=== PATIENT | female | born 1965 | race Caucasian/White ===

== ENCOUNTER 2019-08-03 07:43 | Outpatient (CLI) | payer BC, SELFPAY ==
--- NOTE | ~2019-08-03 | CT_ITS ---
EXAMINATION: CT abdomen pelvis w con DATE: 08/03/2019 08:49 INDICATION: Lower abdominal pain, left greater than right. Bloating, nausea, constipation. History of diverticulitis. TECHNIQUE: Computed tomography (CT) of the abdomen and pelvis was performed with 100 cc Omnipaque 350 intravenous contrast. Automated exposure control and iterative reconstruction technique were employe d. Exam dose: 1458.95 mGy-cm total exam DLP. COMPARISON: None. FINDINGS: The lung bases are clear. Normal heart size. No pericardial or pleural effusion. Status post cholecystectomy. No hepatic, splenic, pancreatic, adrenal or renal space-occupying mass l esion. Normal appendix. There are numerous diverticula of the left and right colon. There is CT evidence o f mild lower descending colon diverticulitis, with mild pericolic stranding. No bowel obstructio n or free air. Normal caliber of the abdominal aorta. No intraperitoneal or retroperitoneal or pelvic mass lesion o r lymphadenopathy. No ascites. Status post hysterectomy. Degenerative changes of the thoracic and lumbar spine. IMPRESSION: Mild diverticulitis of the lower descending colon Reviewed, dictated and finalized at [facility]. Reviewed, dictated and finalized at [facility].
[2019-08-03 08:25] LABS: Estimated Glomerular Filt Rate 55
== END 2019-08-03 07:44 | disposition home or self-care (01) ==
PROVIDERS: PCP Nurse Practitioner Family; Visit Provider Nurse Practitioner Family
DX: R10.32 Left lower quadrant pain (principal)
CPT/HCPCS: 74177; Q9965

== ENCOUNTER 2019-10-24 15:27 | Outpatient (CLI) | payer BC, SELFPAY ==
[2019-10-24 16:29] LABS: Thyroid Stimulating Hormone 2.26 uIU/mL (0.36-3.74)
== END 2019-10-24 15:28 | disposition home or self-care (01) ==
PROVIDERS: PCP Nurse Practitioner Family; Visit Provider Nurse Practitioner Family
DX: E03.9 Hypothyroidism, unspecified (principal)
CPT/HCPCS: 36415; 84443

== ENCOUNTER 2020-01-16 18:38 | Outpatient (CLI) | payer BC, SELFPAY ==
[2020-01-17 14:04] LABS: SARS-CoV-2 RNA PCR Negative
== END 2020-01-16 18:39 | disposition home or self-care (01) ==
LOC: CHSLAB 18:41
PROVIDERS: PCP Family Medicine; Visit Provider Family Medicine
DX: Z20.828 Contact with and (suspected) exposure to other viral communicable diseases (principal)
CPT/HCPCS: 87635; C9803; U0003

== ENCOUNTER 2020-01-22 09:46 | Outpatient (CLI) | payer BC, SELFPAY ==
[2020-01-24 01:59] LABS: SARS-CoV-2 RNA PCR Negative
== END 2020-01-22 09:47 | disposition home or self-care (01) ==
LOC: CHSLAB 09:54
PROVIDERS: PCP Nurse Practitioner Family; Visit Provider Nurse Practitioner Family
DX: Z20.828 Contact with and (suspected) exposure to other viral communicable diseases (principal)
CPT/HCPCS: 87635; C9803; U0003

== ENCOUNTER 2020-04-22 18:29 | Outpatient (CLI) | payer BC, SELFPAY ==
[2020-04-24] LABS: SARS-CoV-2 RNA PCR Negative
== END 2020-04-22 18:30 | disposition home or self-care (01) ==
LOC: CHSLAB 18:31
PROVIDERS: PCP Nurse Practitioner Family; Visit Provider Nurse Practitioner Family
DX: Z20.822 Contact with and (suspected) exposure to COVID-19 (principal)
CPT/HCPCS: C9803; U0003; U0005

== ENCOUNTER 2020-05-23 07:06 | Outpatient (CLI) | payer BC, SELFPAY ==
[2020-05-23 07:18] LABS: Basophils Absolute Auto 0.02 K/mm3 (0.00-0.10); Basophils Percent Auto 0.4 % (0.0-1.0); Eosinophils Percent Auto 1.8 % (1.0-6.0); Hematocrit 41.9 % (35.0-49.0); Hemoglobin 13.6 g/dL (12.0-15.0); Immature Granulocyte Absolute 0.01 K/mm3 (0.00-0.00); Immature Granulocyte Percent A 0.2 % (0.0-0.0); Lymphocytes Absolute Auto 1.65 K/mm3 (1.10-4.50); Lymphocytes Percent Auto 29.2 % (18.0-42.0); Mean Corpuscular HGB Conc 32.5 g/dL (32.0-36.0); Mean Corpuscular Hemoglobin 29.4 pg (27.0-31.0); Mean Corpuscular Volume 90.7 fL (78.0-102.0); Mean Platelet Volume 8.6 fl (9.2-11.8); Monocytes Absolute Auto 0.53 K/mm3 (0.10-0.90); Monocytes Percent Auto 9.4 % (2.0-11.0); Neutrophils Absolute Auto 3.3 K/mm3 (1.7-7.2); Platelet Count Result 220 K/mm3 (150-420); Red Blood Count 4.62 M/mm3 (4.20-5.40); Red Cell Distribution Width 13.2 % (11.6-14.4); White Blood Count 5.7 K/mm3 (4.8-10.8)
[2020-05-23 08:10] LABS: Alanine Aminotransferase 34 U/L (14-59); Albumin Level 3.5 g/dL (3.4-5.0); Alkaline Phosphatase 76 U/L (46-116); Anion Gap 7 mmol/L (8-16); Aspartate Amino Transferase 18 U/L (15-37); Bilirubin,Total 0.4 mg/dL (0.00-1.00); Blood Urea Nitrogen 18 mg/dL (7-18); Calcium 8.6 mg/dL (8.5-10.1); Carbon Dioxide 31 mmol/L (21-32); Chloride 102 mmol/L (98-108); Cholesterol 198 mg/dL (0-200); Estimated Glomerular Filt Rate 57; Free T4 Free Thyroxine 0.97 ng/dL (0.76-1.46); Glucose 100 mg/dL (70-99); HDL Direct 56 mg/dL (40-60); LDL Cholesterol Calculated 115 mg/dL (<130); Osmolality Calculated 291 mOsm/kg (285-295); Sodium 140 mmol/L (136-145); Thyroid Stimulating Hormone 3.91 uIU/mL (0.36-3.74); Total Protein 6.5 g/dL (6.4-8.2); Triglycerides 135 mg/dL (0-150)
== END 2020-05-23 07:07 | disposition home or self-care (01) ==
LOC: CHSLAB 07:09
PROVIDERS: PCP Nurse Practitioner Family; Visit Provider Nurse Practitioner Family
DX: Z00.00 Encounter for general adult medical examination without abnormal findings (principal); I10 Essential (primary) hypertension; E03.9 Hypothyroidism, unspecified
CPT/HCPCS: 36415; 80053; 80061; 84439; 84443; 85025

== ENCOUNTER 2020-08-05 13:20 | Outpatient (CLI) | payer BC, SELFPAY | END 2020-08-05 13:21 | disposition home or self-care (01) | LOC: CHSLAB 13:22 | PROVIDERS: PCP Nurse Practitioner Family; Visit Provider Nurse Practitioner Family | DX: R10.32 Left lower quadrant pain (principal) | CPT/HCPCS: 87324 ==

== ENCOUNTER 2020-09-20 01:08 | Day surgery (SDC) | payer BC, SELFPAY ==
[2020-09-11 15:32] VITALS: BMI 42.0
[2020-09-20 08:23] VITALS: BP 122/86; PULSE 94; RESP 16; TEMP 36.2; O2SAT 100
[2020-09-20] MEDS: LACTATED RINGERS 1,000 ML 150 ML IV CONT (08:33)
--- NOTE | 2020-09-20 08:40 | WPDGICN ---
Assessment and Plan Assessment and plan (1) History of diverticulitis of colon: Code(s): Z87.19 - Personal history of other diseases of the digestive system Status: Acute Assessment and Plan: Patient has a history of left lower quadrant diverticulitis. Plan is for high-fiber diet a colonoscopy will be performed further recommendations will be given after endoscopy. (2) LLQ abdominal pain: Code(s): R10.32 - Left lower quadrant pain Status: Acute Assessment and Plan: Recent left lower quadrant abdominal pain is improved after course of antibiotics for presumed diverticular disease. GI Consult Note Consult date/time: 09/20/20 08:40 HPI: Belkys Murry is a 54 year old female presents for colonoscopy because of episode of diverticulitis. Patient reports having had left lower quadrant abdominal pain during the month of June. Pain lasted for approximately 1 month. Patient ultimately underwent a CAT scan consistent with diverticulitis. She was treated with with 10 day course of antibiotics. Patient states pain is now resolved. She is felt pain-free for 4-6 weeks. She denies any weight loss or bleeding. In the past she has had occasional brief left lower quadrant abdominal pain. Family history is significant that her father had a bowel resection for a colon polyp. Review of Systems Review of Systems: All systems reviewed & are unremarkable except as noted in HPI and below PMFSH Past Medical History Medical History Essential hypertension Generalized anxiety disorder Major depression, recurrent Obese Raynauds disease Sinusitis URI (upper respiratory infection) Surgical History Surgical History History of ankle surgery History of bilateral tubal ligation (~1996) History of cholecystectomy (~2003) History of hysterectomy (~2008) S/P surgery on nasal septum (~2015) Family History Family History Father Diabetes mellitus Hypertension Myocardial infarction Mother Hypertension Other Acute myocardial infarction Family history of type 2 diabetes mellitus Social History Social History Smoking status: Never smoker Alcohol intake: current Alcohol use details: once every 3 months Substance use: never Substance use type: does not use Gender identity (if verbalized by the patient): Female Spiritual care concerns: No Meds Home Medications and Allergies Home Medications Medication Instructions Recorded Confirmed Type aspirin 81 mg tablet,delayed 81 mg PO HS 02/28/19 09/11/20 History release bupropion HCl 300 mg 24 hr tablet, 300 mg PO DAILY #90 tablet 04/03/20 09/11/20 Rx extended release buspirone 5 mg PO BID 09/11/20 09/11/20 History cetirizine 10 mg PO DAILY 09/11/20 09/11/20 History fluticasone propionate 1 spray INTRANASAL DAILY 09/11/20 09/11/20 History levothyroxine 50 mcg PO DAILY 09/11/20 09/11/20 History losartan-hydrochlorothiazide 1 tablet PO DAILY 09/11/20 09/11/20 History Allergies Allergy/AdvReac Type Severity Reaction Status Date / Time Penicillins Allergy Severe unknown Verified 09/20/20 08:21 prednisone Allergy Severe Palpitation Verified 09/20/20 08:21 s Vital Signs Vital Signs - 24 hr 09/20/20 08:23 Temperature 97.1 F L Pulse Rate 94 Respiratory Rate 16 Blood Pressure 122/86 Pulse Oximetry 100 Exam Narrative: Exam Narrative: Physical exam reveals patient be alert. Vital signs stable. HEENT exam is unremarkable. Lungs are clear to auscultation and percussion. Heart is without murmur or extra sounds. Abdominal exam bowel sounds are present soft nontender with no organomegaly. Digital external rectal exam is normal.
--- NOTE | 2020-09-20 08:44 | WPDANESEPPF ---
Anes - Initial Pre Proc Eval Procedure: Operation Date: 09/20/20 09:30 Proposed Procedures p Colonoscopy - Arnoldo Puente MD Date/Time: 09/20/20 08:44 Surgeon: Arnoldo Puente MD Pre Op Diagnosis: diverticulitis Patient Data Age: 54 Gender: F Height: 1.68 m Weight: 116.3 kg Last Vital Signs Temp 97.1 F L 09/20/20 08:23 Pulse 94 09/20/20 08:23 Resp 16 09/20/20 08:23 BP 122/86 09/20/20 08:23 Pulse Ox 100 09/20/20 08:23 Allergies Allergy/AdvReac Type Severity Reaction Status Date / Time Penicillins Allergy Severe unknown Verified 09/20/20 08:21 prednisone Allergy Severe Palpitation Verified 09/20/20 08:21 s Home Medications Medication Instructions Recorded Confirmed Type aspirin 81 mg tablet,delayed 81 mg PO HS 02/28/19 09/11/20 History release bupropion HCl 300 mg 24 hr tablet, 300 mg PO DAILY #90 tablet 04/03/20 09/11/20 Rx extended release buspirone 5 mg PO BID 09/11/20 09/11/20 History cetirizine 10 mg PO DAILY 09/11/20 09/11/20 History fluticasone propionate 1 spray INTRANASAL DAILY 09/11/20 09/11/20 History levothyroxine 50 mcg PO DAILY 09/11/20 09/11/20 History losartan-hydrochlorothiazide 1 tablet PO DAILY 09/11/20 09/11/20 History Patient hx anesthesia problems: none Family hx anesthesia problems: none PMFSH Past Medical History Medical History Essential hypertension Generalized anxiety disorder Major depression, recurrent Obese Raynauds disease Sinusitis URI (upper respiratory infection) Surgical History Surgical History History of ankle surgery History of bilateral tubal ligation (~1996) History of cholecystectomy (~2003) History of hysterectomy (~2008) S/P surgery on nasal septum (~2015) Family History Family History Father Diabetes mellitus Hypertension Myocardial infarction Mother Hypertension Other Acute myocardial infarction Family history of type 2 diabetes mellitus Social History Social History Smoking status: Never smoker Alcohol intake: current Alcohol use details: once every 3 months Substance use: never Substance use type: does not use Gender identity (if verbalized by the patient): Female Spiritual care concerns: No Anes - Eval Final PreProcedure Day of Procedure 09/20/20 08:44 Patient weight: morbidly obese Heart: regular rate and rhythm Lungs: clear to auscultation Airway: Mallampati scale class III Neurological: alert and oriented Last oral intake: >/= 8 hours ASA classification: III Emergent: no Anesthetic plan: proceed Anesthesia type and monitoring: general GIVS and standard monitoring Informed Consent: The patient's anesthetic plan and its attendant risks and benefits were discussed with the patient/family/POA. Questions were solicited and answers provided to the satisfaction of the patient/family/POA.
[2020-09-20 09:12] VITALS: BP 98/58; PULSE 97; RESP 20; O2SAT 96
[2020-09-20 09:22] VITALS: BP 105/70; PULSE 89; RESP 20; O2SAT 96
[2020-09-20 09:32] VITALS: BP 112/77; PULSE 86; RESP 18; O2SAT 96
== END 2020-09-20 09:42 | disposition home or self-care (01) ==
PROVIDERS: PCP Nurse Practitioner Family; Visit Provider Internal Medicine Gastroenterology
PROC: 0DJD8ZZ Inspection of Lower Intestinal Tract, Via Natural or Artificial Opening Endoscopic (ICD-10-PCS; CPT 45378; principal; 2020-09-20 09:30)
DX: Z09 Encounter for follow-up examination after completed treatment for conditions other than malignant neoplasm (principal); K57.30 Diverticulosis of large intestine without perforation or abscess without bleeding; Z87.19 Personal history of other diseases of the digestive system; Z83.71 Family history of colonic polyps; Z79.82 Long term (current) use of aspirin; E03.9 Hypothyroidism, unspecified; I10 Essential (primary) hypertension; F41.1 Generalized anxiety disorder; I73.00 Raynaud's syndrome without gangrene; E66.01 Morbid (severe) obesity due to excess calories; Z68.41 Body mass index [BMI] 40.0-44.9, adult
CPT/HCPCS: 45378; J2704; J7120

== ENCOUNTER 2020-10-02 18:28 | Outpatient (CLI) | payer BC, SELFPAY ==
[2020-10-02 19:35] LABS: SARS-CoV-2 RNA PCR Negative (Negative)
== END 2020-10-02 18:29 | disposition home or self-care (01) ==
LOC: CHSLAB 18:30
PROVIDERS: PCP Nurse Practitioner Family; Visit Provider Nurse Practitioner Family
DX: Z20.822 Contact with and (suspected) exposure to COVID-19 (principal)
CPT/HCPCS: C9803; U0003; U0005

== ENCOUNTER 2020-10-09 17:47 | Outpatient (CLI) | payer BC, SELFPAY ==
[2020-10-09 19:04] LABS: SARS-CoV-2 RNA PCR Negative (Negative)
== END 2020-10-09 17:48 | disposition home or self-care (01) ==
LOC: CHSLAB 17:49
PROVIDERS: PCP Nurse Practitioner Family; Visit Provider Nurse Practitioner Family
DX: Z20.822 Contact with and (suspected) exposure to COVID-19 (principal)
CPT/HCPCS: C9803; U0003; U0005

== ENCOUNTER 2020-12-18 14:45 | Outpatient (CLI) | payer BC, SELFPAY ==
[2020-12-18 17:31] LABS: SARS-CoV-2 RNA PCR Negative (Negative)
== END 2020-12-18 14:46 | disposition home or self-care (01) ==
LOC: CHSLAB 14:49
PROVIDERS: PCP Nurse Practitioner Family; Visit Provider Nurse Practitioner Family
DX: R09.81 Nasal congestion (principal); Z20.822 Contact with and (suspected) exposure to COVID-19
CPT/HCPCS: C9803; U0003; U0005

== ENCOUNTER 2021-02-26 12:05 | Outpatient (CLI) | payer BC, SELFPAY ==
--- NOTE | 2021-02-26 12:08 | ECG_ITS ---
Measurements Intervals [place] Rate: 78 P: 56 VA: 169 QRS: 31 QRSD: 109 T: 40 QT: 392 QTc: 448 Interpretive Statements SINUS RHYTHM DELAYED PRECORDIAL R/S TRANSITION LOW QRS VOLTAGE IN PRECORDIAL LEADS MINIMAL Q WAVES- INFERIOR LEADS BORDERLINE ECG Electronically Signed On 02-26-2021 13:38:18 PATENT PROSECUTION ATTORNEY by Boogie Correa D.O.
[2021-02-26 13:55] LABS: SARS-CoV-2 RNA PCR Negative (Negative)
== END 2021-02-26 12:06 | disposition home or self-care (01) ==
PROVIDERS: PCP Nurse Practitioner Family; Visit Provider Nurse Practitioner Family
DX: R00.2 Palpitations (principal); J32.9 Chronic sinusitis, unspecified; Z20.822 Contact with and (suspected) exposure to COVID-19
CPT/HCPCS: 93005; C9803; U0003; U0005

== ENCOUNTER 2021-03-10 18:10 | Outpatient (CLI) | payer BC, SELFPAY ==
[2021-03-10 20:07] LABS: SARS-CoV-2 RNA PCR Negative (Negative)
== END 2021-03-10 18:11 | disposition home or self-care (01) ==
LOC: CHSLAB 18:12
PROVIDERS: PCP Nurse Practitioner Family; Visit Provider Nurse Practitioner Family
DX: Z20.822 Contact with and (suspected) exposure to COVID-19 (principal)
CPT/HCPCS: C9803; U0003; U0005

== ENCOUNTER 2021-03-17 11:48 | Outpatient (CLI) | payer BC, SELFPAY ==
[2021-03-17 13:01] LABS: Influenza Control Valid (Valid); SARS-CoV-2 Ag Negative (Negative)
== END 2021-03-17 11:49 | disposition home or self-care (01) ==
LOC: CHSLAB 11:50
PROVIDERS: PCP Nurse Practitioner Family; Visit Provider Nurse Practitioner Family
DX: R09.81 Nasal congestion (principal); Z20.822 Contact with and (suspected) exposure to COVID-19
CPT/HCPCS: 87426; 87804; C9803

== ENCOUNTER 2021-05-13 12:29 | Outpatient (CLI) | payer BC, SELFPAY | END 2021-05-13 12:30 | disposition home or self-care (01) | LOC: CHSLAB 12:31 | PROVIDERS: PCP Nurse Practitioner Family; Visit Provider Nurse Practitioner Family | DX: E03.9 Hypothyroidism, unspecified (principal) | CPT/HCPCS: 36415; 84443 ==

== ENCOUNTER 2021-08-14 07:58 | Outpatient (CLI) | payer BC, SELFPAY ==
--- NOTE | ~2021-08-14 | MM_ITS ---
EXAMINATION: MM screening [facility] BI w matilde HISTORY: Screening TECHNIQUE: Craniocaudal and mediolateral oblique 3-D tomosynthesis images were obtained and synthetic 2-D images were generated. CAD analysis was submitted and interpreted. COMPARISON: Comparison to multiple prior studies sequentially, with oldest reviewed study dated 12/01. BREAST PARENCHYMAL COMPOSITION: There are scattered areas of fibroglandular density. FINDINGS: There is no evidence of suspicious mass, calcification, or architectural distortion to sugg est malignancy in either breast. There has been no suspicious interval change. IMPRESSION: 1. No mammographic evidence of malignancy. 2. Recommend routine screening mammography in one year. BI-RADS Category 1: Negative Reviewed, dictated and finalized at location [facility].
== END 2021-08-14 07:59 | disposition home or self-care (01) ==
LOC: CHSIMG 07:59
PROVIDERS: PCP Nurse Practitioner Family; Visit Provider Nurse Practitioner Family
DX: Z12.31 Encounter for screening mammogram for malignant neoplasm of breast (principal)
CPT/HCPCS: 77063; 77067

== ENCOUNTER 2021-12-01 09:51 | Outpatient (CLI) | payer BC, SELFPAY ==
[2021-12-01 10:41] LABS: Thyroid Stimulating Hormone 2.19 uIU/mL (0.36-3.74)
== END 2021-12-01 09:52 | disposition home or self-care (01) ==
PROVIDERS: PCP Family Medicine; Visit Provider Nurse Practitioner Family
DX: E03.9 Hypothyroidism, unspecified (principal)
CPT/HCPCS: 36415; 84443

== ENCOUNTER 2021-12-05 08:51 | Outpatient (CLI) | payer BC, SELFPAY ==
--- NOTE | ~2021-12-05 | XR_ITS ---
EXAMINATION: XR chest 2V DATE: 12/05/2021 09:13 INDICATION: Chest pain. Congestion. TECHNIQUE: Frontal and lateral views of the chest were obtained. COMPARISON: Chest 2 views 07/22/2018 FINDINGS: The chest demonstrates clear lungs without pneumonia, pleural effusion, or pneumothorax. Th e heart size is normal. Surgical clips in the right upper quadrant are likely from cholecystectomy. T here is mild chronic anterior wedging of vertebral bodies at thoracolumbar junction. IMPRESSION: 1. No acute cardiopulmonary disease. Reviewed, dictated and finalized at location [facility].
[2021-12-05 09:00] LABS: Basophils Absolute Auto 0.02 K/mm3 (0.00-0.10); Basophils Percent Auto 0.4 % (0.0-1.0); Hematocrit 43.3 % (35.0-49.0); Hemoglobin 13.9 g/dL (12.0-15.0); Immature Granulocyte Absolute 0.01 K/mm3 (0.00-0.00); Immature Granulocyte Percent A 0.2 % (0.0-0.0); Lymphocytes Percent Auto 37.6 % (18.0-42.0); Mean Corpuscular HGB Conc 32.1 g/dL (32.0-36.0); Mean Corpuscular Hemoglobin 29.7 pg (27.0-31.0); Mean Corpuscular Volume 92.5 fL (78.0-102.0); Mean Platelet Volume 8.4 fl (9.2-11.8); Monocytes Absolute Auto 0.55 K/mm3 (0.10-0.90); Monocytes Percent Auto 10.9 % (2.0-11.0); Neutrophils Absolute Auto 2.4 K/mm3 (1.7-7.2); Neutrophils Percent Auto 46.9 % (50.0-70.0); Platelet Count Result 199 K/mm3 (150-420); Red Blood Count 4.68 M/mm3 (4.20-5.40); Red Cell Distribution Width 13.5 % (11.6-14.4); White Blood Count 5.1 K/mm3 (4.8-10.8)
[2021-12-05 09:26] LABS: Alanine Aminotransferase 118 U/L (14-59); Albumin Level 3.4 g/dL (3.4-5.0); Alkaline Phosphatase 105 U/L (46-116); Anion Gap 10 mmol/L (8-16); Aspartate Amino Transferase 64 U/L (15-37); Bilirubin,Total 0.4 mg/dL (0.00-1.00); Blood Urea Nitrogen 17 mg/dL (7-18); Calcium 8.5 mg/dL (8.5-10.1); Carbon Dioxide 28 mmol/L (21-32); Chloride 107 mmol/L (98-108); Estimated Glomerular Filt Rate 58; Glucose 98 mg/dL (70-99); Osmolality Calculated 301 mOsm/kg (285-295); Potassium 3.8 mmol/L (3.5-5.1); Sodium 145 mmol/L (136-145); Total Protein 6.4 g/dL (6.4-8.2)
[2021-12-10 04:09] LABS: Hepatitis A Antibody IgM Nonreactive; Hepatitis B Core Antibody Nonreactive (Nonreactive); Hepatitis B Surface Antigen Nonreactive (Nonreactive); Hepatitis C Signal to Cutoff 0.01 ratio (<1.00); Hepatitis C Virus Antibody Nonreactive (Nonreactive)
== END 2021-12-05 08:52 | disposition home or self-care (01) ==
PROVIDERS: PCP Family Medicine; Visit Provider Family Medicine
DX: R69 Illness, unspecified (principal); R74.01 Elevation of levels of liver transaminase levels
CPT/HCPCS: 36415; 71046; 80053; 80074; 85025

== ENCOUNTER 2021-12-25 07:40 | Outpatient (CLI) | payer BC, SELFPAY ==
--- NOTE | ~2021-12-25 | US_ITS ---
US abdomen limited INDICATION: Elevated liver function tests. PROCEDURE: Realtime right upper abdominal ultrasound. COMPARISON: No prior studies for comparison. FINDINGS: The pancreas is normal without focal mass or pancreatic ductal dilation. Liver is enlarged measuring 16.5 cm. Liver echotexture is increased, consistent with fatty infiltration. There is nor mal directional flow in the portal vein. Gallbladder is surgically absent. Common bile duct measures 4 mm. IMPRESSION: 1: Hepatomegaly with fatty infiltration of the liver. Reviewed, dictated and finalized at location [facility].
== END 2021-12-25 07:41 | disposition home or self-care (01) ==
LOC: CHSIMG 07:41
PROVIDERS: PCP Family Medicine; Visit Provider Family Medicine
DX: R74.01 Elevation of levels of liver transaminase levels (principal)
CPT/HCPCS: 76705

== ENCOUNTER 2022-01-26 11:34 | Outpatient (CLI) | payer BC, SELFPAY ==
[2022-01-26 12:36] LABS: Influenza A QL RT-PCR Negative (Negative); Influenza B QL RT-PCR Negative (Negative); SARS-CoV-2 RNA PCR Negative (Negative)
== END 2022-01-26 11:35 | disposition home or self-care (01) ==
LOC: CHSLAB 11:38
PROVIDERS: PCP Family Medicine; Visit Provider Family Medicine
DX: Z20.822 Contact with and (suspected) exposure to COVID-19 (principal)
CPT/HCPCS: 87636

== ENCOUNTER 2022-04-13 10:06 | Outpatient (CLI) | payer BC, SELFPAY ==
[2022-04-13 10:18] LABS: Add Urine Microscopic? YES; Appearance Urine Clear (Clear); Bilirubin Urine Negative (Negative); Blood Urine 2+ (Negative); Color Urine Orange (Yellow); Glucose Urine UA Negative (Negative); Ketones Urine Negative (Negative); Leukocyte Esterase Ur 1+ LEU/UL (Negative); Nitrate Urine Negative (Negative); Protein Urine Negative (Negative); Urobilinogen Urine 0.2 mg/dL (0.2-1.0)
[2022-04-13 10:26] LABS: Bacteria Urine 1+ /hpf; Squamous Epithelial Cell Urine Few /hpf (Few); WBC Urine 16-20 /hpf (0-3)
== END 2022-04-13 10:07 | disposition home or self-care (01) ==
LOC: CHSLAB 10:08
PROVIDERS: PCP Family Medicine; Visit Provider Family Medicine
DX: R30.0 Dysuria (principal)
CPT/HCPCS: 81001; 87077; 87086; 87088; 87186

== ENCOUNTER 2022-10-13 13:45 | Outpatient (CLI) | payer BC, SELFPAY ==
[2022-10-13 14:24] LABS: Anion Gap 9 mmol/L (8-16); Blood Urea Nitrogen 22 mg/dL (7-18); Carbon Dioxide 31 mmol/L (21-32); Chloride 105 mmol/L (98-108); Estimated Glomerular Filt Rate 54; Glucose 81 mg/dL (70-99); Potassium 3.7 mmol/L (3.5-5.1); Sodium 145 mmol/L (136-145)
[2022-10-13 14:25] LABS: Alanine Aminotransferase 21 U/L (14-59); Albumin Level 3.6 g/dL (3.4-5.0); Alkaline Phosphatase 80 U/L (46-116); Aspartate Amino Transferase 17 U/L (15-37); Bilirubin,Total 0.4 mg/dL (0.00-1.00); Calcium 9.2 mg/dL (8.5-10.1); Osmolality Calculated 302 mOsm/kg (285-295); Total Protein 6.8 g/dL (6.4-8.2)
== END 2022-10-13 13:46 | disposition home or self-care (01) ==
LOC: CHSLAB 13:47
PROVIDERS: PCP Family Medicine; Visit Provider Family Medicine
DX: R74.01 Elevation of levels of liver transaminase levels (principal)
CPT/HCPCS: 36415; 80053

== ENCOUNTER 2022-10-26 08:23 | Outpatient (CLI) | payer BC, SELFPAY ==
--- NOTE | ~2022-10-26 | MM_ITS ---
EXAMINATION: MM screening [facility] BI w matilde HISTORY: Screening mammogram TECHNIQUE: Craniocaudal and mediolateral oblique 3-D tomosynthesis images were obtained and synthetic 2-D images were generated. CAD analysis was submitted and interpreted. COMPARISON: 08/14/2021, 12/29/2018 bilateral screening mammogram examinations BREAST PARENCHYMAL COMPOSITION: There are scattered areas of fibroglandular density. FINDINGS: There is no evidence of suspicious mass, calcification, or architectural distortion to sugg est malignancy in either breast. There has been no suspicious interval change. IMPRESSION: 1. No mammographic evidence of malignancy. 2. Recommend routine screening mammography in one year. BI-RADS Category 1: Negative Reviewed, dictated and finalized at location [facility].
== END 2022-10-26 08:24 | disposition home or self-care (01) ==
LOC: CHSIMG 08:24
PROVIDERS: PCP Family Medicine; Visit Provider Family Medicine
DX: Z12.31 Encounter for screening mammogram for malignant neoplasm of breast (principal)
CPT/HCPCS: 77063; 77067

== ENCOUNTER 2022-10-27 11:40 | Outpatient (CLI) | payer BC, SELFPAY ==
--- NOTE | ~2022-10-27 | CT_ITS ---
EXAMINATION: CT orbit BI wo con DATE: 10/27/2022 12:34 INDICATION: Right eye swelling post injury 6 days prior TECHNIQUE: High resolution computed tomography (CT) of the bilateral orbits was performed without int ravenous contrast. Additional sagittal and coronal reconstructions were performed. Automated exposure control and iterative reconstruction technique were employed. The dose-length product was 208.51 mGy -cm. COMPARISON: None FINDINGS: No maxillofacial fractures. Specifically the villa of the orbits and paranasal sinuses, the nasal bon es, zygomatic arches and visualized portions of the mandible are all intact. Normal alignment at the bilateral temporomandibular joints with mild osteoarthritis. No preseptal or post septal inflammatory stranding. The bilateral globes appear intact. There is rightward bowing of the nasal septum which p arallels the contours of the terminates . Mild mucoperiosteal thickening in the left maxillary and bi lateral ethmoid sinuses. Mastoid air cells and middle ear cavities are clear. IMPRESSION: 1. Normal bilateral orbits. No acute maxillofacial fractures. Reviewed, dictated and finalized at location [facility].
== END 2022-10-27 11:41 | disposition home or self-care (01) ==
PROVIDERS: PCP Family Medicine; Visit Provider Family Medicine
DX: S05.8X1A Other injuries of right eye and orbit, initial encounter (principal)
CPT/HCPCS: 70480

== ENCOUNTER 2022-11-23 11:24 | Outpatient (CLI) | payer BC, SELFPAY ==
[2022-11-23 11:37] LABS: Basophils Absolute Auto 0.04 K/mm3 (0.00-0.10); Basophils Percent Auto 0.5 % (0.0-1.0); Eosinophils Absolute Auto 0.08 K/mm3 (0.02-0.50); Hematocrit 47.9 % (35.0-49.0); Hemoglobin 15.4 g/dL (12.0-15.0); Immature Granulocyte Absolute 0.02 K/mm3 (0.00-0.00); Immature Granulocyte Percent A 0.3 % (0.0-0.0); Lymphocytes Absolute Auto 2.12 K/mm3 (1.10-4.50); Lymphocytes Percent Auto 27.7 % (18.0-42.0); Mean Corpuscular HGB Conc 32.2 g/dL (32.0-36.0); Mean Corpuscular Hemoglobin 29.7 pg (27.0-31.0); Mean Corpuscular Volume 92.5 fL (78.0-102.0); Mean Platelet Volume 8.6 fl (9.2-11.8); Monocytes Absolute Auto 0.62 K/mm3 (0.10-0.90); Monocytes Percent Auto 8.1 % (2.0-11.0); Neutrophils Absolute Auto 4.8 K/mm3 (1.7-7.2); Neutrophils Percent Auto 62.4 % (50.0-70.0); Platelet Count Result 228 K/mm3 (150-420); Red Blood Count 5.18 M/mm3 (4.20-5.40); Red Cell Distribution Width 13.1 % (11.6-14.4); White Blood Count 7.6 K/mm3 (4.8-10.8)
[2022-11-23 13:50] LABS: Appearance Urine Cloudy (Clear); Bilirubin Urine Negative (Negative); Blood Urine Trace-Intact (Negative); Color Urine Yellow (Yellow); Glucose Urine UA Negative (Negative); Ketones Urine Negative (Negative); Leukocyte Esterase Ur Negative LEU/UL (Negative); Nitrate Urine Negative (Negative); Protein Urine Negative (Negative); Specific Grav Ur >= 1.030 (1.010-1.020); Urobilinogen Urine 0.2 mg/dL (0.2-1.0); pH Urine 5.5 (5.0-8.0)
[2022-11-23 13:54] LABS: Add Urine Microscopic? YES; RBC Urine None seen /hpf (0-2); Squamous Epithelial Cell Urine Few /hpf (Few); WBC Urine None seen /hpf (0-3)
[2022-11-23 13:55] LABS: Amorphous Sediment Urine Heavy; Bacteria Urine Trace /hpf
[2022-11-23 14:01] LABS: Alanine Aminotransferase 16 U/L (14-59); Albumin Level 3.4 g/dL (3.4-5.0); Alkaline Phosphatase 82 U/L (46-116); Anion Gap 8 mmol/L (8-16); Aspartate Amino Transferase 17 U/L (15-37); Bilirubin,Total 0.4 mg/dL (0.00-1.00); Blood Urea Nitrogen 20 mg/dL (7-18); Calcium 9.8 mg/dL (8.5-10.1); Carbon Dioxide 29 mmol/L (21-32); Chloride 105 mmol/L (98-108); Estimated Glomerular Filt Rate 60; Glucose 91 mg/dL (70-99); Iron 99 ug/dL (50-170); Osmolality Calculated 296 mOsm/kg (285-295); Potassium 4.2 mmol/L (3.5-5.1); Sodium 142 mmol/L (136-145); Total Protein 6.7 g/dL (6.4-8.2)
[2022-11-24 09:00] LABS: Free T4 Free Thyroxine 1.07 ng/dL (0.76-1.46); Thyroid Stimulating Hormone 2.53 uIU/mL (0.36-3.74)
[2022-11-28 14:34] LABS: Vitamin D 25 Hydroxy 25 ng/mL (30-100)
== END 2022-11-23 11:25 | disposition home or self-care (01) ==
LOC: CHSLAB 11:25
PROVIDERS: PCP Family Medicine; Visit Provider Nurse Practitioner Family
DX: E03.9 Hypothyroidism, unspecified (principal); R42 Dizziness and giddiness; Z79.899 Other long term (current) drug therapy; Z87.898 Personal history of other specified conditions
CPT/HCPCS: 36415; 80053; 81001; 82306; 83540; 84439; 84443; 85025

== ENCOUNTER 2023-04-20 10:56 | Outpatient (CLI) | payer BC, SELFPAY ==
[2023-04-20 11:52] LABS: SARS-CoV-2 RNA PCR Negative (Negative)
[2023-04-20 11:57] LABS: Influenza A QL RT-PCR Negative (Negative); Influenza B QL RT-PCR Negative (Negative); RSV RNA, RT-PCR Negative (Negative)
== END 2023-04-20 10:57 | disposition home or self-care (01) ==
LOC: CHSLAB 10:58
PROVIDERS: PCP Nurse Practitioner Family; Visit Provider Nurse Practitioner Family
DX: R05.9 Cough, unspecified (principal)
CPT/HCPCS: 87637

== ENCOUNTER 2023-10-04 11:12 | Outpatient (CLI) | payer BC, SELFPAY ==
--- NOTE | ~2023-10-04 | XR_ITS ---
EXAMINATION: XR chest 2V 10/04/2023 11:46 INDICATION: Shortness of breath for 3 month PROCEDURE: 2 view chest COMPARISON: Comparison to multiple prior studies sequentially, with oldest reviewed study dated 08/2008. FINDINGS: The lungs are clear. The cardiomediastinal silhouette is within normal limits. There are no pleural effusions. There is no pneumothorax suspected. Moderate lower thoracic spondylosis with mild wedge compression deformities which are likely chronic. IMPRESSION: 1: NO ACUTE CARDIOPULMONARY DISEASE. Reviewed, dictated and finalized at location [facility].
[2023-10-04 11:34] LABS: Basophils Absolute Auto 0.03 K/mm3 (0.00-0.10); Basophils Percent Auto 0.4 % (0.0-1.0); Eosinophils Absolute Auto 0.06 K/mm3 (0.02-0.50); Eosinophils Percent Auto 0.8 % (1.0-6.0); Hematocrit 45.5 % (35.0-49.0); Hemoglobin 15.3 g/dL (12.0-15.0); Immature Granulocyte Absolute 0.02 K/mm3 (0.00-0.00); Immature Granulocyte Percent A 0.3 % (0.0-0.0); Lymphocytes Absolute Auto 1.85 K/mm3 (1.10-4.50); Lymphocytes Percent Auto 25.9 % (18.0-42.0); Mean Corpuscular HGB Conc 33.6 g/dL (32-36); Mean Corpuscular Hemoglobin 30.2 pg (27.0-31.0); Mean Corpuscular Volume 89.7 fL (78.0-102.0); Mean Platelet Volume 8.3 fl (9.2-11.8); Monocytes Absolute Auto 0.65 K/mm3 (0.10-0.90); Monocytes Percent Auto 9.1 % (2.0-11.0); Neutrophils Absolute Auto 4.53 K/mm3 (1.70-7.20); Neutrophils Percent Auto 63.5 % (50.0-70.0); Platelet Count Result 256 K/mm3 (150-420); Red Blood Count 5.07 M/mm3 (4.20-5.40); Red Cell Distribution Width 12.9 % (11.6-14.4); White Blood Count 7.1 K/mm3 (4.8-10.8)
--- NOTE | 2023-10-04 11:35 | ECG_ITS ---
Test Date: 2023-10-04 11:50:56 Measurements Intervals [place] Rate: 89 P: 59 TN: 162 QRS: 3 QRSD: 110 T: 56 QT: 378 QTc: 460 Interpretive Statements SINUS RHYTHM LOW QRS VOLTAGE IN PRECORDIAL LEADS [QRS DEFLECTION < 1.0 mV IN CHEST LEADS] No previous ECG available for comparison Electronically Signed On 10-05-2023 14:33:13 CDT by Olga Lidia Caballero M.D.
[2023-10-04 11:54] LABS: Add Urine Microscopic? NO; Appearance Urine Clear (Clear); Bilirubin Urine Negative (Negative); Blood Urine Negative (Negative); Color Urine Yellow (Yellow); Glucose Urine UA Negative (Negative); Ketones Urine Negative (Negative); Leukocyte Esterase Ur Negative LEU/UL (Negative); Nitrate Urine Negative (Negative); Protein Urine Negative (Negative); Specific Grav Ur >= 1.030 (1.010-1.020); Urobilinogen Urine 0.2 mg/dL (0.2-1.0)
[2023-10-05 14:23] LABS: Vitamin D 25 Hydroxy 35 ng/mL (30-100)
[2023-10-05 18:37] LABS: Alanine Aminotransferase 30 U/L (14-59); Albumin Level 3.8 g/dL (3.4-5.0); Alkaline Phosphatase 87 U/L (46-116); Anion Gap 11 mmol/L (4-12); Aspartate Amino Transferase 19 U/L (15-37); Bilirubin,Total 0.6 mg/dL (0.00-1.00); Blood Urea Nitrogen 19 mg/dL (7-18); Calcium 9.2 mg/dL (8.5-10.1); Carbon Dioxide 26 mmol/L (21-32); Chloride 103 mmol/L (98-108); Estimated Glomerular Filt Rate 55; Free T4 Free Thyroxine 1.07 ng/dL (0.76-1.46); Glucose 92 mg/dL (70-99); Iron 105 ug/dL (50-170); Magnesium 1.9 mg/dL (1.8-2.4); Osmolality Calculated 292 mOsm/kg (285-295); Potassium 4.2 mmol/L (3.5-5.1); Sodium 140 mmol/L (136-145); Thyroid Stimulating Hormone 3.18 uIU/mL (0.36-3.74); Total Protein 7.1 g/dL (6.4-8.2)
[2023-10-07 16:08] LABS: H pylori, Urea Breath DETECTED (NOT DETECTED)
== END 2023-10-04 11:13 | disposition home or self-care (01) ==
LOC: CHSLAB 11:13
PROVIDERS: PCP Nurse Practitioner Family; Visit Provider Nurse Practitioner Family
DX: R07.89 Other chest pain (principal); D64.9 Anemia, unspecified; E03.9 Hypothyroidism, unspecified; R10.13 Epigastric pain; Z87.898 Personal history of other specified conditions; Z79.899 Other long term (current) drug therapy; I10 Essential (primary) hypertension; R53.83 Other fatigue; R06.02 Shortness of breath
CPT/HCPCS: 36415; 71046; 80053; 81003; 82306; 83013; 83540; 83735; 84439; 84443; 85025; 93005

== ENCOUNTER 2023-10-18 09:21 | Outpatient (CLI) | payer BC, SELFPAY ==
--- NOTE | 2023-10-18 09:35 | EST_ITS ---
Patient Info Name: Belkys Murry Age: 57 years : 1965 Gender: Female Ht: 66 in Wt: 266 lbs BSA: 2.43 m2 HR: 91 bpm BP: 110 / 80 mmHg Heart Rhythm: Sinus Rhythm Technical Quality: Good Exam Date: 10/18/2023 10:06 AM Exam Location: [facility] Patient Status: Outpatient Admit Date: 10/18/2023 Staff Ordering Physician: Michela Ortiz NP Attending Provider: Michela Ortiz NP Exam Type: CA stress test treadmill Study Info A treadmill exercise stress test was performed. History/Risk Factors Hypertension: Yes Family History: Diabetes Mellitus, Coronary Artery Disease Summary 1. 1. Negative Titi exercise stress test for ischemic ST changes by ECG criteria. 2. 2. Reduced functional capacity, achieving 7 METs of workload. 3. 3. Hypertensive response to exercise. 4. 4. Appropriate HR response to exercise. 5. 5. Appropriate HR recovery at 1 minute post exercise. 6. 6. No imaging with stress testing. Protocol: Titi Stress ECG Details Stage: REST Duration (min): 1 min : 14 sec Speed (mph): 0.0 Grade (%): 0 HR (bpm): 91 SBP (mmHg): 110 DBP (mmHg): 80 METS: --- Stage: REST Duration (min): 2 min : 2 sec Speed (mph): 0.0 Grade (%): 0 HR (bpm): 101 SBP (mmHg): 110 DBP (mmHg): 80 METS: --- Stage: STAGE 1 Duration (min): 1 min : 0 sec Speed (mph): 1.7 Grade (%): 10 HR (bpm): 115 SBP (mmHg): 110 DBP (mmHg): 80 METS: --- Stage: STAGE 1 Duration (min): 2 min : 0 sec Speed (mph): 1.7 Grade (%): 10 HR (bpm): 126 SBP (mmHg): 110 DBP (mmHg): 80 METS: --- Stage: STAGE 1 Duration (min): 3 min : 0 sec Speed (mph): 1.7 Grade (%): 10 HR (bpm): 132 SBP (mmHg): 110 DBP (mmHg): 80 METS: --- Stage: STAGE 2 Duration (min): 1 min : 0 sec Speed (mph): 2.5 Grade (%): 12 HR (bpm): 152 SBP (mmHg): 110 DBP (mmHg): 80 METS: --- Stage: STAGE 2 Duration (min): 2 min : 0 sec Speed (mph): 2.5 Grade (%): 12 HR (bpm): 163 SBP (mmHg): 110 DBP (mmHg): 80 METS: --- Stage: STAGE 2 Duration (min): 2 min : 0 sec Speed (mph): 2.5 Grade (%): 12 HR (bpm): 163 SBP (mmHg): 110 DBP (mmHg): 80 METS: --- Stage: RECOVERY Duration (min): 0 min : 59 sec Speed (mph): 0.0 Grade (%): 0 HR (bpm): 139 SBP (mmHg): 200 DBP (mmHg): 106 METS: --- Stage: RECOVERY Duration (min): 1 min : 59 sec Speed (mph): 0.0 Grade (%): 0 HR (bpm): 127 SBP (mmHg): 127 DBP (mmHg): 86 METS: --- Stage: RECOVERY Duration (min): 2 min : 59 sec Speed (mph): 0.0 Grade (%): 0 HR (bpm): 116 SBP (mmHg): 127 DBP (mmHg): 86 METS: --- Stage: RECOVERY Duration (min): 3 min : 59 sec Speed (mph): 0.0 Grade (%): 0 HR (bpm): 109 SBP (mmHg): 127 DBP (mmHg): 76 METS: --- Stage: RECOVERY Duration (min): 4 min : 59 sec Speed (mph): 0.0 Grade (%): 0 HR (bpm): 112 SBP (mmHg):
== END 2023-10-18 09:22 | disposition home or self-care (01) ==
LOC: CHSCARD 09:24
PROVIDERS: PCP Nurse Practitioner Family; Visit Provider Nurse Practitioner Family
DX: R53.83 Other fatigue (principal); R06.02 Shortness of breath; R07.89 Other chest pain
CPT/HCPCS: 93017

== ENCOUNTER 2023-10-28 08:22 | Outpatient (CLI) | payer BC, SELFPAY ==
--- NOTE | ~2023-10-28 | MM_ITS ---
EXAMINATION: MM screening [facility] BI w matilde HISTORY: Screening TECHNIQUE: Craniocaudal and mediolateral oblique 3-D tomosynthesis images were obtained and synthetic 2-D images were generated. CAD analysis was submitted and interpreted. COMPARISON: Comparison to multiple prior studies sequentially, with oldest reviewed study dated 06/11. BREAST PARENCHYMAL COMPOSITION: Not dense: There are scattered areas of fibroglandular density. FINDINGS: There is no evidence of suspicious mass, calcification, or architectural distortion to sugg est malignancy in either breast. There has been no suspicious interval change. IMPRESSION: 1. No mammographic evidence of malignancy. 2. Recommend routine screening mammography in one year. BI-RADS Category 1: Negative Reviewed, dictated and finalized at location [facility].
== END 2023-10-28 08:23 | disposition home or self-care (01) ==
LOC: CHSIMG 08:23
PROVIDERS: PCP Nurse Practitioner Family; Visit Provider Nurse Practitioner Family
DX: Z12.31 Encounter for screening mammogram for malignant neoplasm of breast (principal)
CPT/HCPCS: 77063; 77067

== ENCOUNTER 2023-12-17 00:38 | Day surgery (SDC) | payer BC, SELFPAY ==
[2023-12-08 11:16] VITALS: BMI 43.0
[2023-12-17 12:07] VITALS: BP 139/65; PULSE 94; RESP 20; TEMP 36; O2SAT 99
[2023-12-17] MEDS: LACTATED RINGERS 1,000 ML 150 ML IV CONT (12:21)
--- NOTE | 2023-12-17 13:17 | WPDANESEPPF ---
Anes - Initial Pre Proc Eval Procedure: Operation Date: 12/17/23 13:30 Proposed Procedures p Esophagogastroduodenoscopy - Travis Norris MD Date/Time: 12/17/23 13:17 Surgeon: Travis Norris MD Pre Op Diagnosis: epigastric, GERD, other infection Patient Data Age: 58 Gender: F Height: 1.68 m Weight: 125.7 kg Last Vital Signs Temp 36.0 C L 12/17/23 12:07 Pulse 94 12/17/23 12:07 Resp 20 12/17/23 12:07 BP 139/65 12/17/23 12:07 Pulse Ox 99 12/17/23 12:07 O2 Del Method Room Air 12/17/23 12:07 Allergies Allergy/AdvReac Type Severity Reaction Status Date / Time Penicillins Allergy Severe unknown Verified 12/17/23 12:05 Home Medications Medication Instructions Recorded Confirmed Type aspirin 81 mg tablet,delayed 81 mg PO HS 02/28/19 12/17/23 History release (Adult Aspirin Regimen) cetirizine 10 mg capsule 10 mg PO DAILY PRN allergies 09/11/20 12/17/23 History fluticasone propionate 50 See Rx Instructions .Route 10/14/21 12/17/23 Rx mcg/actuation nasal .COMPLEX #48 mL spray,suspension cholecalciferol (vitamin D3) 1,250 See Rx Instructions .Route 02/25/23 12/17/23 Rx mcg (50,000 unit) capsule .COMPLEX #4 caps levothyroxine 50 mcg tablet See Rx Instructions .Route 06/17/23 12/17/23 Rx .COMPLEX #90 tabs losartan 50 mg-hydrochlorothiazide See Rx Instructions .Route 07/29/23 12/17/23 Rx 12.5 mg tablet .COMPLEX #90 tabs bupropion HCl 300 mg 24 hr tablet, See Rx Instructions .Route 10/04/23 12/17/23 Rx extended release .COMPLEX #30 tabs buspirone 10 mg tablet See Rx Instructions .Route 10/04/23 12/17/23 Rx .COMPLEX #90 tabs famotidine 40 mg tablet 40 mg PO DAILY PRN abdominal 10/26/23 12/17/23 Rx discomfort #90 tabs azelastine 137 mcg (0.1 %) nasal 2 spray intranasal Q12H #30 mL 10/28/23 12/17/23 Rx spray pantoprazole 40 mg tablet,delayed 40 mg PO BID 12/08/23 12/17/23 History release Patient hx anesthesia problems: none Family hx anesthesia problems: none Results Review: All pre-operative results and documents have been reviewed as part of the pre-operative evaluation. [facility] Past Medical History Medical History Essential hypertension Generalized anxiety disorder Major depression, recurrent Obese Raynauds disease Sinusitis URI (upper respiratory infection) Surgical History Surgical History History of ankle surgery History of bilateral tubal ligation (~1996) History of cholecystectomy (~2003) History of hysterectomy (~2008) S/P surgery on nasal septum (~2015) Family History Family History Father Diabetes mellitus Hypertension Myocardial infarction Mother Hypertension Other Acute myocardial infarction Family history of type 2 diabetes mellitus Social History Social History Smoking status: Never smoker Alcohol intake: former Alcohol use details: once every 3 months Substance use: never Substance use type: does not use Other substance usage details: THC & CBD gummy Living arrangements: with family Gender identity (if verbalized by the patient): Female Spiritual care concerns: No Anes - Eval Final PreProcedure Day of Procedure 12/17/23 13:17 Patient weight: morbidly obese Heart: regular rate and rhythm Lungs: clear to auscultation Airway: Mallampati scale class II Neurological: alert and oriented Last oral intake: >/= 8 hours ASA classification: III Emergent: no Anesthetic plan: proceed Anesthesia type and monitoring: general GIVS and standard monitoring Results Review: All pre-operative results and documents have been reviewed as part of the pre-operative evaluation. Informed Consent: The patient's anesthetic plan and its attendant risks and benefits were discussed with the patient/family/POA. Questions were solicited and answers provided to the satisfaction of the patient/family/POA.
--- NOTE | 2023-12-17 13:23 | PM.HPGS ---
History of Present Illness History of Present Illness Consent: Risks, benefits, and alternatives have been discussed and questions answered. Patient agrees to proceed with procedure. Chief complaint: epigastric, GERD, other infection Narrative: Belkys Murry is a 58 year old female here for egd after epigastric pain, diagnosed with H pylori by breathing test and treated, now doing much better and still using ppi. Had EGD but more than 15 years ago. Review of Systems Review of Systems: All systems reviewed & are unremarkable except as noted in HPI and below PMFSH Past Medical History Medical History Essential hypertension Generalized anxiety disorder Major depression, recurrent Obese Raynauds disease Sinusitis URI (upper respiratory infection) Surgical History Surgical History History of ankle surgery History of bilateral tubal ligation (~1996) History of cholecystectomy (~2003) History of hysterectomy (~2008) S/P surgery on nasal septum (~2015) Family History Family History Father Diabetes mellitus Hypertension Myocardial infarction Mother Hypertension Other Acute myocardial infarction Family history of type 2 diabetes mellitus Social History Social History Smoking status: Never smoker Alcohol intake: former Alcohol use details: once every 3 months Substance use: never Substance use type: does not use Other substance usage details: THC & CBD gummy Living arrangements: with family Gender identity (if verbalized by the patient): Female Spiritual care concerns: No Meds Home Medications and Allergies Home Medications Medication Instructions Recorded Confirmed Type aspirin 81 mg tablet,delayed 81 mg PO HS 02/28/19 12/17/23 History release (Adult Aspirin Regimen) cetirizine 10 mg capsule 10 mg PO DAILY PRN allergies 09/11/20 12/17/23 History fluticasone propionate 50 See Rx Instructions .Route 10/14/21 12/17/23 Rx mcg/actuation nasal .COMPLEX #48 mL spray,suspension cholecalciferol (vitamin D3) 1,250 See Rx Instructions .Route 02/25/23 12/17/23 Rx mcg (50,000 unit) capsule .COMPLEX #4 caps levothyroxine 50 mcg tablet See Rx Instructions .Route 06/17/23 12/17/23 Rx .COMPLEX #90 tabs losartan 50 mg-hydrochlorothiazide See Rx Instructions .Route 07/29/23 12/17/23 Rx 12.5 mg tablet .COMPLEX #90 tabs bupropion HCl 300 mg 24 hr tablet, See Rx Instructions .Route 10/04/23 12/17/23 Rx extended release .COMPLEX #30 tabs buspirone 10 mg tablet See Rx Instructions .Route 10/04/23 12/17/23 Rx .COMPLEX #90 tabs famotidine 40 mg tablet 40 mg PO DAILY PRN abdominal 10/26/23 12/17/23 Rx discomfort #90 tabs azelastine 137 mcg (0.1 %) nasal 2 spray intranasal Q12H #30 mL 10/28/23 12/17/23 Rx spray pantoprazole 40 mg tablet,delayed 40 mg PO BID 12/08/23 12/17/23 History release Allergies Allergy/AdvReac Type Severity Reaction Status Date / Time Penicillins Allergy Severe unknown Verified 12/17/23 12:05 Vital Signs Vital Signs - 24 hr 12/17/23 12:07 Temperature 96.8 F L Pulse Rate 94 Respiratory Rate 20 Blood Pressure 139/65 Pulse Oximetry 99 Oxygen Delivery Room Air Exam Const: General: comfortable and no acute distress HENMT: Face/Nose/Sinus: Normal nares present Eyes: General: appearance normal, both eyes and all related structures Neck: Neck: no JVD Resp: Auscultation: clear to auscultation bilaterally Cardio: Rate: regular rate Rhythm: regular rhythm GI: Inspection: non-distended GI Palp: Yes Soft to palpation Skin: General skin exam: normal color Neuro: General: gait normal Speech: normal speech Extrem: General: normal to inspection Psych: Mental Status: mental status grossly normal Assessment and Plan Assessment and plan (1) Epigastric pain: Code(s): R10.13 - Epigastric pain Status: Acute Assessment and Plan: egd with bx, will check for h pylori eradication
[2023-12-17 13:34] VITALS: BP 134/74; PULSE 94; RESP 20; O2SAT 96
[2023-12-17 13:44] VITALS: BP 130/82; PULSE 92; RESP 18; O2SAT 98
[2023-12-17 13:54] VITALS: BP 132/88; PULSE 85; RESP 18; O2SAT 98
[2023-12-17 14:33] LABS: HPYLORIRESULT Negative (Negative)
== END 2023-12-17 13:58 | disposition home or self-care (01) ==
PROVIDERS: PCP Nurse Practitioner Family; Visit Provider Internal Medicine Gastroenterology
PROC: 0DJ08ZZ Inspection of Upper Intestinal Tract, Via Natural or Artificial Opening Endoscopic (ICD-10-PCS; CPT 43235; principal; 2023-12-17 13:30)
DX: K29.50 Unspecified chronic gastritis without bleeding (principal); K44.9 Diaphragmatic hernia without obstruction or gangrene; Z87.19 Personal history of other diseases of the digestive system; E66.01 Morbid (severe) obesity due to excess calories; Z68.41 Body mass index [BMI] 40.0-44.9, adult; F12.90 Cannabis use, unspecified, uncomplicated
CPT/HCPCS: 43239; 87081; 88305; J2003; J2704; J7120

== ENCOUNTER 2024-08-10 11:33 | Outpatient (CLI) | payer BC, SELFPAY ==
[2024-08-10 11:50] LABS: Basophils Absolute Auto 0.03 K/mm3 (0.00-0.10); Basophils Percent Auto 0.4 % (0.0-1.0); Eosinophils Absolute Auto 0.06 K/mm3 (0.02-0.50); Eosinophils Percent Auto 0.9 % (1.0-6.0); Hematocrit 43.7 % (35.0-49.0); Immature Granulocyte Absolute 0.01 K/mm3 (0.00-0.00); Immature Granulocyte Percent A 0.1 % (0.0-0.0); Lymphocytes Absolute Auto 1.73 K/mm3 (1.10-4.50); Lymphocytes Percent Auto 24.8 % (18.0-42.0); Mean Corpuscular Hemoglobin 29.4 pg (27.0-31.0); Mean Corpuscular Volume 91.6 fL (78.0-102.0); Mean Platelet Volume 8.7 fl (9.2-11.8); Monocytes Absolute Auto 0.65 K/mm3 (0.10-0.90); Monocytes Percent Auto 9.3 % (2.0-11.0); Neutrophils Percent Auto 64.5 % (50.0-70.0); Platelet Count Result 240 K/mm3 (150-420); Red Blood Count 4.77 M/mm3 (4.20-5.40); Red Cell Distribution Width 13.3 % (11.6-14.4)
[2024-08-10 12:00] LABS: Creatinine Urine 212.8 mg/dL
[2024-08-10 12:01] LABS: Hemoglobin A1C 5.3 % (<5.7)
[2024-08-10 12:02] LABS: Microalbumin Urine Random 10.7 mg/L (0-16.7)
[2024-08-10 12:05] LABS: Alanine Aminotransferase 21 U/L (6-35); Alkaline Phosphatase 66 U/L (38-126); Anion Gap 3 mmol/L (4-12); Aspartate Amino Transferase 27 U/L (14-36); Bilirubin,Total 0.8 mg/dL (0.2-1.3); Blood Urea Nitrogen 15 mg/dL (7-17); Calcium 9.1 mg/dL (8.4-10.2); Carbon Dioxide 31 mmol/L (22-30); Chloride 106 mmol/L (98-107); Cholesterol 192 mg/dL (0-200); Estimated Glomerular Filt Rate > 60; Glucose 87 mg/dL (65-110); HDL Direct 57 mg/dL; LDL Cholesterol Calculated 103 mg/dL (<130); Osmolality Calculated 289 mOsm/kg (285-295); Sodium 140 mmol/L (137-145); Total Protein 6.6 g/dL (6.3-8.2); Triglycerides 160 mg/dL (<150)
== END 2024-08-10 11:34 | disposition home or self-care (01) ==
PROVIDERS: PCP Family Medicine; Visit Provider Family Medicine
DX: E66.9 Obesity, unspecified (principal); E03.9 Hypothyroidism, unspecified; K21.9 Gastro-esophageal reflux disease without esophagitis
CPT/HCPCS: 36415; 80053; 80061; 82043; 83036; 84443; 85025

== ENCOUNTER 2024-08-24 10:31 | Outpatient (CLI) | payer BC, SELFPAY ==
[2024-08-24 12:25] LABS: Toxigenic C. Diff POSITIVE (NEGATIVE)
[2024-09-01 00:24] LABS: Calprotectin, Stool. 104 mcg/g
[2024-09-07 03:28] LABS: Pancreatic Elastase, Stool. >800 mcg/g (>200)
== END 2024-08-24 10:32 | disposition home or self-care (01) ==
LOC: CHSLAB 10:32
PROVIDERS: PCP Family Medicine; Visit Provider Nurse Practitioner Family
DX: R19.7 Diarrhea, unspecified (principal)
CPT/HCPCS: 82653; 83993; 87045; 87427; 87449; 87493

== ENCOUNTER 2024-09-05 15:38 | Outpatient (CLI) | payer BC, SELFPAY ==
--- OUTSIDE RECORDS SUMMARY | 2024-09-05 15:42 | XMS_ITS | Patient Health Record ---
Author Organization [facility] Address [address] [place], [place] [id number] Care Team Providers Care Pathology Laboratory Aides Teacher Name Role Phone SCOUT TRAN Unavailable [phone] Rafat Lewis Unavailable Unavailable Reason For Referral No Information Medications Medication SIG (Take, Route, Frequency, Duration) Notes Start Date End Date Status Medrol Dosepak ORAL Medrol DosepakOr iginal MedicationMedrol Dosepak *Reorder from [employer] for eRx and Interaction Alerts* 4 Active Nabumetone 500 MG Oral Tablet ORAL nabumetone 500 MG Oral TabletOriginal Medicationnabumetone 500 MG Oral Tablet *Reorder from [employer] for eRx and Interaction Alerts* 4 Active clobetasol propionate 0.0005 MG/MG Topical Ointment [Temovate] CUTANEOUS clobetasol propionate 0.0005 MG/MG Topical Ointment [Temovate]Original Medicationclobetasol propionate 0.0005 MG/MG Topical Ointment [Temovate] *Reorder from [employer] for eRx and Interaction Alerts* 5 Active acetaminophen 300 MG / hydrocodone bitartrate 5 MG Oral Tablet ORAL acetaminophen 300 MG / hydrocodone bitartrate 5 MG Oral TabletOriginal Medicationacetaminophen 300 MG / hydrocodone bitartrate 5 MG Oral Tablet *Reorder from [employer] for eRx and Interaction Alerts* 4 Active Plan Of Treatment No Information Insurance Providers Payer Name Payer Address Payer Phone Subscriber Number Group Number Insured Name Patient Relationship to Insured Coverage Start Date Coverage End Date [facility] [address] [address] [place] [address] [id number] GALE WRAY Spouse - patient is the spouse of the insured
--- NOTE | 2024-09-05 15:43 | ECHO_ITS ---
Patient Info Name: Belkys Murry Age: 58 years : 1965 Gender: Female Ht: 66 in Wt: 270 lbs BSA: 2.45 m2 HR: 90 bpm BP: 125 / 99 mmHg Technical Quality: Fair Exam Date: 09/05/2024 3:53 PM Patient Status: O Admit Date: 09/05/2024 Exam Type: CA echo dop color flow w con Complete two-dimensional, color flow and Doppler transthoracic echocardiogram is performed with contrast to opacify the left ventricle and to improve the deliniation of the left ventricle endocardial borders. Harpsichord Maker: Araseli Saini Attending Provider: Tom Nails Contrast/Agitated Saline Contrast/Ag. Saline: Definity Amount: 2.00 ml Administered By: Araseli Saini Existing IV Access: Yes IV Access Condition: patent with no signs of infiltration Summary 1. Left ventricular chamber dimension is normal. 2. Left ventricular systolic function is normal, estimated at 55-60. 3. Definity contrast administered improved wall motion interpretation. 4. E/e' 5 is not elevated. 5. There is trace mitral valve regurgitation. 6. No pulmonary hypertension, estimated pulmonary arterial systolic pressure is 12 mmHg. Left Ventricle E/e' 5 is not elevated. Left ventricular chamber dimension is normal. Left ventricular systolic function is normal, estimated at 55-60. Definity contrast administered improved wall motion interpretation. Right Ventricle Right ventricular chamber dimension is normal. Right ventricular systolic function is normal and with normal TAPSE 1.8 cm. Left Atria Left atrial chamber dimension is normal. Right Atria Right atrial chamber dimension is normal. Aortic Valve The aortic valve is trileaflet. There is no aortic valve stenosis. There is no aortic valve regurgitation. Pulmonic Valve There is no pulmonic regurgitation. Mitral Valve There is no mitral valve stenosis. There is trace mitral valve regurgitation. Tricuspid Valve There is no tricuspid valve regurgitation. No pulmonary hypertension, estimated pulmonary arterial systolic pressure is 12 mmHg. Pericardium/Pleural There is no pericardial effusion. Inferior Vena Cava Normal inferior vena cava with >50% collapse upon inspiration consistent with normal right atrial pressure, 5 mmHg. Aorta The aortic root size at the sinus of Valsalva is normal. Left Ventricular Outflow Tract Name Value Normal LVOT 2D LVOT Diameter 2.0 cm LVOT Doppler LVOT Peak Velocity 109 cm/s LVOT Peak Gradient 5 mmHg LVOT Mean Gradient 3 mmHg LVOT VTI 22 cm LVOT VTI/AV VTI Ratio 0.9 LVOT Stroke Volume 67 ml LVOT CO 4.9 l/min LVOT CI 2.0 l/min/m2 Pulmonic Valve Name Value Normal PV Doppler PV Peak Velocity 85 cm/s PV Peak Gradient 3 mmHg Mitral Valve Name Value Normal MV Diastolic Function MV E Peak Velocity 69 cm/s MV A Peak Velocity 88 cm/s MV E/A 0.8 MV Decel Time (PW) 196 ms MV Annular TDI MV E/e' (Septal) 6.4 MV E/e' (Lateral) 5.7 MV E/e' (Average) 6.0 Tricuspid Valve Name Value Normal TV Regurgitation Doppler TR Peak Velocity 128 cm/s TR Peak Gradient 7 mmHg Estimated PAP/RSVP RA Pressure 5 mmHg <=5 PA Systolic Pressure 12 mmHg <36 RV Systolic Pressure 12 mmHg <36 TV Annular TDI TV Lateral Ibeth s' Velocity 11.9 cm/s >=9.5 Aortic Valve Name Value Normal AV Doppler AV Peak Velocity 135 cm/s AV Peak Gradient 6 mmHg AV Mean Gradient 3 mmHg AV VTI 25 cm AV Area (Cont Eq VTI) 2.7 cm2 >=3.0 AV Area (Cont Eq Farhad) 2.5 cm2 AV DI (Farhad) 0.81 AV Regurgitation 2D LVOT Area 3.1 cm2 Ventricles Name Value Normal LV Dimensions 2D/MM IVS Diastolic Thickness (2D) 0.8 cm 0.6-1.0 LVID Diastole (2D) 4.6 cm 3.8-5.2 LVIW Diastolic Thickness (2D) 0.8 cm 0.6-0.9 LVID Systole (2D) 3.8 cm 2.2-3.5 LVOT Diameter 2.0 cm LV Mass (2D Cubed) 122.69 g 67.00-162.00 LV Mass Index (2D Cubed) 50 g/m2 43-95 Relative Wall Thickness (2D) 0.36 <=0.42 LV Fractional Shortening/Ejection Fraction 2D/MM LV Fractional Shortening (2D) 19 % 27-45 LV EF (2D Teichholz) 39 % LV Diastolic Volume (4C MOD) 137 ml LV EF (4C MOD) 59 % LV Diastolic Volume (2C MOD) 153 ml LV EF (2C MOD) 59 % LV Diastolic Volume (BP MOD) 144 ml 46-106 LV Diastolic Volume Index (BP MOD) 59 ml/m2 29-61 LV Systolic Volume (BP MOD) 60 ml 14-42 LV Systolic Volume Index (BP MOD) 24 ml/m2 8-24 LV EF (BP MOD) 59 % 54-74 LV Diastolic Length (4C) 8.8 cm LV Systolic Length (4C) 7.2 cm LV Stroke Volume (4C MOD) 81 ml Atria Name Value Normal LA Dimensions LA Volume (4C A-L) 44 ml LA Volume (BP A-L) 46 ml RA Dimensions RA Systolic Major [place] Length (4C) 4.3 cm 2.2-2.8 RA Area (4C) 13.4 cm2 <=18.0 Report Signatures
[2024-09-05] MEDS: PERFLUTREN LIPID MICROSPHERES 1.5 ML VIAL DILUTED TO 10 ML TOTAL VOLUME IV PUSH (17:20)
--- NOTE | 2024-09-05 17:29 | IVDEFINITY ---
Prior to administration of IV Definity the patient was educated on the risks and benefits of the imaging enhancing agent including potential adverse side effects. The patient verbalized understanding. Allergies were verified. No exclusion criteria were identified and at least one of the following inclusion criteria were met: 1) physician request, 2) patient technically difficult to image (per the [place] [employer] Echocardi[employer] guidelines of two or more segments not discernable within the apical view), or 3) questionable left ventricular function. ?
== END 2024-09-05 15:39 | disposition home or self-care (01) ==
LOC: CHSIMG 15:40
PROVIDERS: PCP Family Medicine; Visit Provider Family Medicine
DX: I50.9 Heart failure, unspecified (principal); E66.9 Obesity, unspecified
CPT/HCPCS: C8929

== ENCOUNTER 2024-09-07 09:49 | Outpatient (CLI) | payer BC, SELFPAY ==
--- NOTE | ~2024-09-07 | CT_ITS ---
CT of the Abdomen and Pelvis: Indication: Constipation Technique: 2.5 mm axial scans were obtained through the abdomen and pelvis following intravenous adm inistration of 100 cc of Omnipaque 350. Dose reduction technique was used on this scan by utilizing a utomated exposure control and iterative reconstruction technique. The dose-length product (DLP) was 1 463.87 mGy-cm. Findings: Scans through the lung bases are unremarkable. The liver, spleen, pancreas, adrenals and kidneys are within normal limits. Cholecystectomy clips are present. No evidence of aortic aneurysm. No lymphadenopathy. No bowel obstruction or bowel wall thickening. There is no evidence to suggest acute appendicitis. Images through the pelvis were performed. Urinary bladder unremarkable. No pelvic mass seen. Status p ost hysterectomy. No ascites. Impression: No significant abnormalities seen. Reviewed, dictated and finalized at location . Impression: No significant abnormalities seen.
--- OUTSIDE RECORDS SUMMARY | 2024-09-07 09:56 | XMS_ITS | Patient Health Record ---
Author Organization [facility] Address [address] [place], [place] [id number] Care Team Providers Care Product/Device Technologist Name Role Phone SCOUT TRAN Unavailable [phone] Rafat Lewis Unavailable Unavailable Reason For Referral No Information Medications Medication SIG (Take, Route, Frequency, Duration) Notes Start Date End Date Status Medrol Dosepak ORAL Medrol DosepakOr iginal MedicationMedrol Dosepak *Reorder from [employer] for eRx and Interaction Alerts* 4 Active Nabumetone 500 MG Oral Tablet ORAL nabumetone 500 MG Oral TabletOriginal Medicationnabumetone 500 MG Oral Tablet *Reorder from [employer] for eRx and Interaction Alerts* 4 Active clobetasol propionate 0.0005 MG/MG Topical Ointment [Temovate] CUTANEOUS clobetasol propionate 0.0005 MG/MG Topical Ointment [Temovate]Original Medicationclobetasol propionate 0.0005 MG/MG Topical Ointment [Temovate] *Reorder from [employer] for eRx and Interaction Alerts* 5 Active acetaminophen 300 MG / hydrocodone bitartrate 5 MG Oral Tablet ORAL acetaminophen 300 MG / hydrocodone bitartrate 5 MG Oral TabletOriginal Medicationacetaminophen 300 MG / hydrocodone bitartrate 5 MG Oral Tablet *Reorder from [employer] for eRx and Interaction Alerts* 4 Active Plan Of Treatment No Information Insurance Providers Payer Name Payer Address Payer Phone Subscriber Number Group Number Insured Name Patient Relationship to Insured Coverage Start Date Coverage End Date [facility] [address] [address] [place] [address] [id number] AGLE WRAY Spouse - patient is the spouse of the insured
== END 2024-09-07 09:50 | disposition home or self-care (01) ==
PROVIDERS: PCP Family Medicine; Visit Provider Nurse Practitioner Family
DX: K59.09 Other constipation (principal); R10.32 Left lower quadrant pain; R19.7 Diarrhea, unspecified; Z87.19 Personal history of other diseases of the digestive system
CPT/HCPCS: 74177; Q9967

== ENCOUNTER 2024-10-31 08:15 | Outpatient (CLI) | payer BC, SELFPAY ==
--- NOTE | ~2024-10-31 | MM_ITS ---
EXAMINATION: MM screening [facility] BI w matilde HISTORY: Screening TECHNIQUE: Craniocaudal and mediolateral oblique 3-D tomosynthesis images were obtained and synthetic 2-D images were generated. CAD analysis was submitted and interpreted. COMPARISON: Mammograms from 10/28/2023 and 10/26/2022 BREAST PARENCHYMAL COMPOSITION: There are scattered areas of fibroglandular density. FINDINGS: There is no evidence of suspicious mass, calcification, or architectural distortion in either breast to suggest malignancy. There has been no significant interval change. IMPRESSION: 1. No mammographic evidence of malignancy. Recommend routine screening mammography in one year. BI-RADS Category 1: Negative Reviewed, dictated and finalized at location Q. IMPRESSION: 1. No mammographic evidence of malignancy. Recommend routine screening mammogra phy in one year. BI-RADS Category 1: Negative
--- OUTSIDE RECORDS SUMMARY | 2024-10-31 08:19 | XMS_ITS | Patient Health Record ---
Author Organization [facility] Address [address] [place], [place] [id number] Care Team Providers Care Vault Custodian Name Role Phone SCOUT TRAN Unavailable [phone] Rafat Lewis Unavailable Unavailable Reason For Referral No Information Medications Medication SIG (Take, Route, Frequency, Duration) Notes Start Date End Date Status Medrol Dosepak ORAL Medrol DosepakOr iginal MedicationMedrol Dosepak *Reorder from [employer] for eRx and Interaction Alerts* 4 Active Nabumetone 500 MG Oral Tablet ORAL nabumetone 500 MG Oral TabletOriginal Medicationnabumetone 500 MG Oral Tablet *Reorder from [employer] for eRx and Interaction Alerts* 4 Active clobetasol propionate 0.0005 MG/MG Topical Ointment [Temovate] CUTANEOUS clobetasol propionate 0.0005 MG/MG Topical Ointment [Temovate]Original Medicationclobetasol propionate 0.0005 MG/MG Topical Ointment [Temovate] *Reorder from [employer] for eRx and Interaction Alerts* 5 Active acetaminophen 300 MG / hydrocodone bitartrate 5 MG Oral Tablet ORAL acetaminophen 300 MG / hydrocodone bitartrate 5 MG Oral TabletOriginal Medicationacetaminophen 300 MG / hydrocodone bitartrate 5 MG Oral Tablet *Reorder from [employer] for eRx and Interaction Alerts* 4 Active Plan Of Treatment No Information Insurance Providers Payer Name Payer Address Payer Phone Subscriber Number Group Number Insured Name Patient Relationship to Insured Coverage Start Date Coverage End Date [facility] [address] [address] [place] [address] [id number] GALE WRAY Spouse - patient is the spouse of the insured
== END 2024-10-31 08:16 | disposition home or self-care (01) ==
LOC: CHSIMG 08:16
PROVIDERS: PCP Family Medicine; Visit Provider Family Medicine
DX: Z12.31 Encounter for screening mammogram for malignant neoplasm of breast (principal)
CPT/HCPCS: 77063; 77067

== ENCOUNTER 2024-11-06 02:34 | Day surgery (SDC) | payer BC, SELFPAY ==
[2024-10-23 14:32] VITALS: BMI 43.4
--- OUTSIDE RECORDS SUMMARY | 2024-11-06 02:36 | XMS_ITS | Patient Health Record ---
Author Organization [facility] Address [address] [place], [place] [id number] Care Team Providers Care Double Spindle Shaper Operator Name Role Phone SCOUT TRAN Unavailable [phone] Rafat Lewis Unavailable Unavailable Reason For Referral No Information Medications Medication SIG (Take, Route, Frequency, Duration) Notes Start Date End Date Status Medrol Dosepak ORAL Medrol DosepakOr iginal MedicationMedrol Dosepak *Reorder from [employer] for eRx and Interaction Alerts* 4 Active Nabumetone 500 MG Oral Tablet ORAL nabumetone 500 MG Oral TabletOriginal Medicationnabumetone 500 MG Oral Tablet *Reorder from [employer] for eRx and Interaction Alerts* 4 Active clobetasol propionate 0.0005 MG/MG Topical Ointment [Temovate] CUTANEOUS clobetasol propionate 0.0005 MG/MG Topical Ointment [Temovate]Original Medicationclobetasol propionate 0.0005 MG/MG Topical Ointment [Temovate] *Reorder from [employer] for eRx and Interaction Alerts* 5 Active acetaminophen 300 MG / hydrocodone bitartrate 5 MG Oral Tablet ORAL acetaminophen 300 MG / hydrocodone bitartrate 5 MG Oral TabletOriginal Medicationacetaminophen 300 MG / hydrocodone bitartrate 5 MG Oral Tablet *Reorder from [employer] for eRx and Interaction Alerts* 4 Active Plan Of Treatment No Information Insurance Providers Payer Name Payer Address Payer Phone Subscriber Number Group Number Insured Name Patient Relationship to Insured Coverage Start Date Coverage End Date [facility] [address] [address] [place] [id number] GALE WRAY Spouse - patient is the spouse of the insured
[2024-11-06 09:57] VITALS: BP 129/99; PULSE 107; RESP 16; TEMP 36.1; O2SAT 99; BMI 42.5
[2024-11-06] MEDS: LACTATED RINGERS 1,000 ML 150 ML IV CONT (10:12)
--- NOTE | 2024-11-06 10:40 | WPDANESEPPF ---
Anes - Initial Pre Proc Eval Procedure: Operation Date: 11/06/24 12:30 Proposed Procedures p Diagnostic Colonoscopy - Travis Norris MD Date/Time: 11/06/24 10:40 Surgeon: Travis Norris MD Pre Op Diagnosis: Other constipation Patient Data Age: 58 Gender: F Height: 1.68 m Weight: 119.6 kg Last Vital Signs Temp 36.1 C L 11/06/24 09:57 Pulse 107 H 11/06/24 09:57 Resp 16 11/06/24 09:57 BP 129/99 H 11/06/24 09:57 Pulse Ox 99 11/06/24 09:57 O2 Del Method Room Air 11/06/24 09:57 Allergies Allergy/AdvReac Type Severity Reaction Status Date / Time Penicillins Allergy Severe unknown Verified 11/06/24 09:55 Home Medications ?Medication ?Instructions ?Recorded ?Confirmed ?Type aspirin 81 mg tablet,delayed 81 mg PO HS 02/28/19 11/06/24 History release (Adult Aspirin Regimen) cetirizine 10 mg capsule 10 mg PO DAILY PRN allergies 09/11/20 11/06/24 History fluticasone propionate 50 See Rx Instructions .Route 10/14/21 11/06/24 Rx mcg/actuation nasal .COMPLEX #48 mL spray,suspension cholecalciferol (vitamin D3) 1,250 See Rx Instructions .Route 02/25/23 11/06/24 Rx mcg (50,000 unit) capsule .COMPLEX #4 caps buspirone 10 mg tablet See Rx Instructions .Route 12/29/23 11/06/24 Rx .COMPLEX #270 tabs azelastine 137 mcg (0.1 %) nasal 2 spray intranasal Q12H #30 mL 02/25/24 11/06/24 Rx spray levothyroxine 50 mcg tablet See Rx Instructions .Route 06/26/24 11/06/24 Rx .COMPLEX #90 tabs losartan 50 mg-hydrochlorothiazide See Rx Instructions .Route 06/26/24 11/06/24 Rx 12.5 mg tablet .COMPLEX #90 tabs famotidine 40 mg tablet See Rx Instructions .Route 07/14/24 11/06/24 Rx .COMPLEX #90 tabs vonoprazan 20 mg tablet (Voquezna) 20 mg PO DAILY #30 tabs 08/18/24 11/06/24 Rx cholestyramine 4 gram oral powder 4 g PO BID #60 ea 08/22/24 10/23/24 Rx for suspension in a packet dicyclomine 10 mg capsule 10 mg PO QID #120 caps 08/22/24 10/23/24 Rx bupropion HCl 300 mg 24 hr tablet, See Rx Instructions .Route 09/20/24 11/06/24 Rx extended release .COMPLEX #90 tabs pantoprazole 40 mg tablet,delayed See Rx Instructions .Route 09/21/24 11/06/24 Rx release .COMPLEX #90 tabs Patient hx anesthesia problems: none Family hx anesthesia problems: none Results Review: All pre-operative results and documents have been reviewed as part of the pre-operative evaluation. [facility] Past Medical History Medical History (Updated 11/06/24 @ 10:41 by Pernell Duncan DO) JUNE (obstructive sleep apnea) Obese Generalized anxiety disorder URI (upper respiratory infection) Sinusitis Raynauds disease Essential hypertension Major depression, recurrent Surgical History Surgical History History of ankle surgery S/P surgery on nasal septum (~2015) History of bilateral tubal ligation (~1996) History of hysterectomy (~2008) History of cholecystectomy (~2003) Family History Family History Father Diabetes mellitus Hypertension Myocardial infarction Mother Hypertension Other Acute myocardial infarction Family history of type 2 diabetes mellitus Social History Social History Smoking status: Never smoker Alcohol intake: former Alcohol use details: once every 3 months Substance use: never Substance use type: does not use Other substance usage details: THC & CBD gummy Do You Feel Safe in your Home?: Yes Lack of Transportation: No Lack of Food: Never True Current Housing: I Have Housing Concerned About Future Housing: No Difficulty Paying Gas/Electric Bills: No Difficulty Paying for Meds: No Currently Unemployed: No Difficulty w/ Childcare or Family Care: No Living arrangements: with family Gender identity (if verbalized by the patient): Female Spiritual care concerns: No Anes - Eval Final PreProcedure Day of Procedure 11/06/24 10:40 Patient weight: morbidly obese Heart: regular rate and rhythm Lungs: clear to auscultation Airway: Mallampati scale class II Neurological: alert and oriented Last oral intake: >/= 8 hours ASA classification: III Emergent: no Anesthetic plan: proceed Anesthesia type and monitoring: general GIVS and standard monitoring Results Review: All pre-operative results and documents have been reviewed as part of the pre-operative evaluation. Informed Consent: The patient's anesthetic plan and its attendant risks and benefits were discussed with the patient/family/POA. Questions were solicited and answers provided to the satisfaction of the patient/family/POA.
--- NOTE | 2024-11-06 10:56 | PM.HPGS ---
History of Present Illness History of Present Illness Consent: Risks, benefits, and alternatives have been discussed and questions answered. Patient agrees to proceed with procedure. Chief complaint: Other constipation Narrative: Belkys Murry is a 58 year old female with intermittent abdominal discomfort, last colonoscopy 2020, CT scan no acute findings. Review of Systems Review of Systems: All systems reviewed & are unremarkable except as noted in HPI and below PMFSH Past Medical History Medical History (Updated 11/06/24 @ 10:41 by Pernell Duncan DO) JUNE (obstructive sleep apnea) Obese Generalized anxiety disorder URI (upper respiratory infection) Sinusitis Raynauds disease Essential hypertension Major depression, recurrent Surgical History Surgical History History of ankle surgery S/P surgery on nasal septum (~2015) History of bilateral tubal ligation (~1996) History of hysterectomy (~2008) History of cholecystectomy (~2003) Family History Family History Father Diabetes mellitus Hypertension Myocardial infarction Mother Hypertension Other Acute myocardial infarction Family history of type 2 diabetes mellitus Social History Social History Smoking status: Never smoker Alcohol intake: former Alcohol use details: once every 3 months Substance use: never Substance use type: does not use Other substance usage details: THC & CBD gummy Do You Feel Safe in your Home?: Yes Lack of Transportation: No Lack of Food: Never True Current Housing: I Have Housing Concerned About Future Housing: No Difficulty Paying Gas/Electric Bills: No Difficulty Paying for Meds: No Currently Unemployed: No Difficulty w/ Childcare or Family Care: No Living arrangements: with family Gender identity (if verbalized by the patient): Female Spiritual care concerns: No Meds Home Medications and Allergies Home Medications ?Medication ?Instructions ?Recorded ?Confirmed ?Type aspirin 81 mg tablet,delayed 81 mg PO HS 02/28/19 11/06/24 History release (Adult Aspirin Regimen) cetirizine 10 mg capsule 10 mg PO DAILY PRN allergies 09/11/20 11/06/24 History fluticasone propionate 50 See Rx Instructions .Route 10/14/21 11/06/24 Rx mcg/actuation nasal .COMPLEX #48 mL spray,suspension cholecalciferol (vitamin D3) 1,250 See Rx Instructions .Route 02/25/23 11/06/24 Rx mcg (50,000 unit) capsule .COMPLEX #4 caps buspirone 10 mg tablet See Rx Instructions .Route 12/29/23 11/06/24 Rx .COMPLEX #270 tabs azelastine 137 mcg (0.1 %) nasal 2 spray intranasal Q12H #30 mL 02/25/24 11/06/24 Rx spray levothyroxine 50 mcg tablet See Rx Instructions .Route 06/26/24 11/06/24 Rx .COMPLEX #90 tabs losartan 50 mg-hydrochlorothiazide See Rx Instructions .Route 06/26/24 11/06/24 Rx 12.5 mg tablet .COMPLEX #90 tabs famotidine 40 mg tablet See Rx Instructions .Route 07/14/24 11/06/24 Rx .COMPLEX #90 tabs vonoprazan 20 mg tablet (Voquezna) 20 mg PO DAILY #30 tabs 08/18/24 11/06/24 Rx cholestyramine 4 gram oral powder 4 g PO BID #60 ea 08/22/24 10/23/24 Rx for suspension in a packet dicyclomine 10 mg capsule 10 mg PO QID #120 caps 08/22/24 10/23/24 Rx bupropion HCl 300 mg 24 hr tablet, See Rx Instructions .Route 09/20/24 11/06/24 Rx extended release .COMPLEX #90 tabs pantoprazole 40 mg tablet,delayed See Rx Instructions .Route 09/21/24 11/06/24 Rx release .COMPLEX #90 tabs Allergies Allergy/AdvReac Type Severity Reaction Status Date / Time Penicillins Allergy Severe unknown Verified 11/06/24 09:55 Vital Signs Vital Signs - 24 hr 11/06/24 09:57 Temperature 97.0 F L Pulse Rate 107 H Respiratory Rate 16 Blood Pressure 129/99 H Pulse Oximetry 99 Oxygen Delivery Room Air Exam Const: General: comfortable and no acute distress HENMT: Face/Nose/Sinus: Normal nares present Eyes: General: appearance normal, both eyes and all related structures Neck: Neck: no JVD Resp: Auscultation: clear to auscultation bilaterally Cardio: Rate: regular rate Rhythm: regular rhythm GI: Inspection: non-distended GI Palp: Yes Soft to palpation Skin: General skin exam: normal color Neuro: Speech: normal speech Extrem: General: normal to inspection Psych: Mental Status: mental status grossly normal Assessment and Plan Assessment and plan (1) Lower abdominal pain: Code(s): R10.30 - Lower abdominal pain, unspecified Status: Acute Assessment and Plan: colonoscopy
--- NOTE | 2024-11-06 11:07 | S_PTH ---
PATIENT: Belkys Murry LOC: [facility] Gupta#:[id number] AGE/SX: 58/F ROOM: RE11/06/[address]: Travis Norrsi MD : 1965 BED: DIS: 11/06/2024 SPEC #: [id number] RECD: 11/06/24 12:09 STATUS: CHICHI REAndrew #: [id number] ZITA: 11/06/24 11:[address]: Travis Norris DEPT: [facility] [place] Surgical RECD BY: Papi Stephen ENTERED: 11/06/24 12:09 SP TYPE: Surgical OTHR DR: Tom Nails DO Tissues: A - Colon Polypectomy Procedures: Hematoxylin and Eosin Stain Gross and Microscopic Level 4
[2024-11-06 11:11] VITALS: BP 103/69; PULSE 87; RESP 21; O2SAT 96
[2024-11-06 11:21] VITALS: BP 133/77; PULSE 81; RESP 16; O2SAT 96
[2024-11-06 11:31] VITALS: BP 120/84; PULSE 80; RESP 20; O2SAT 99
== END 2024-11-06 11:42 | disposition home or self-care (01) ==
PROVIDERS: PCP Family Medicine; Referring Provider Nurse Practitioner Family; Visit Provider Internal Medicine Gastroenterology
PROC: 0DJD8ZZ Inspection of Lower Intestinal Tract, Via Natural or Artificial Opening Endoscopic (ICD-10-PCS; CPT 45378; principal; 2024-11-06 12:30)
DX: K59.00 Constipation, unspecified (principal); D12.4 Benign neoplasm of descending colon; K57.30 Diverticulosis of large intestine without perforation or abscess without bleeding; E66.01 Morbid (severe) obesity due to excess calories; Z68.41 Body mass index [BMI] 40.0-44.9, adult
CPT/HCPCS: 45385; 88305; J2003; J2704; J7120